=== PATIENT | male | born 1950 | race Caucasian/White ===

== ENCOUNTER 2017-10-06 11:42 | Emergency (ER) | payer OTHER, MEDICARE, BC ==
[2017-10-06 17:54] LABS: TROPONIN-I < 0.012 ng/ml (0.000-0.120)
[2017-10-06] MEDS: ACETAMINOPHEN 325 MG TAB PO (18:57)
[2017-10-06] MEDS: IBUPROFEN 200 MG TAB PO (18:57)
== END 2017-10-06 18:50 | disposition home or self-care (01) ==
LOC: FTE 11:42
DX: R05 Cough (principal); I10 Essential (primary) hypertension; F17.210 Nicotine dependence, cigarettes, uncomplicated; Z98.61 Coronary angioplasty status
CPT/HCPCS: 71250; 84484; 93005; 99284-25